=== PATIENT | male | born 1985 | race Caucasian/White ===

== ENCOUNTER 2020-10-06 16:21 | Outpatient (CLI) | payer BC | END 2020-10-06 16:22 | disposition home or self-care (01) | LOC: SCSRAD 16:21 | PROVIDERS: ATTEND Family Medicine | DX: M25.521 Pain in right elbow (principal) ==

== ENCOUNTER 2020-10-31 15:18 | Outpatient (CLI) | payer BC | END 2020-10-31 15:19 | disposition home or self-care (01) | LOC: BICMRI 15:18 | PROVIDERS: ATTEND Family Medicine | DX: G56.11 Other lesions of median nerve, right upper limb (principal) ==

== ENCOUNTER 2023-10-16 09:17 | Outpatient (CLI) | payer BC | END 2023-10-16 09:18 | disposition home or self-care (01) | LOC: SCSRAD 09:17 | PROVIDERS: ATTEND Nurse Practitioner Family | DX: M25.561 Pain in right knee (principal); M25.562 Pain in left knee ==

== ENCOUNTER 2023-12-09 15:02 | Outpatient (CLI) | payer BC | END 2023-12-09 15:03 | disposition home or self-care (01) | LOC: SCSMRI 15:02 | PROVIDERS: ATTEND Family Medicine | DX: M25.562 Pain in left knee (principal) ==